=== PATIENT | male | born 1980 | race Caucasian/White ===

== ENCOUNTER 2016-11-19 15:39 | Emergency (ER) | payer OTHER ==
[2016-11-19 15:52] VITALS: BP 111/67
[2016-11-19] MEDS ORDERED: Acetaminophen/HYDROcodone 325-5 MG Tab PO ONE (16:35)
--- NOTE | 2016-11-19 17:42 | EDM.PDOC ---
ED HPI GENERAL MEDICAL PROBLEM - General Chief Complaint: Upper Extremity Injury/Pain Stated Complaint: DISLOCATED SHOULDER Time Seen by Provider: 11/19/16 15:45 - History of Present Illness INITIAL COMMENTS - FREE TEXT/NARRATIVE: 36-year-old male but since emergency room with left shoulder injury. The patient fell just prior to coming in landing on his left elbow he has developed shoulder pain and deformity. Patient landed on his elbow after tripping and going down several stairs. He does not have elbow pain at this point he does state he has some intermittent tingling into his pinky finger and ring finger this comes and goes. Patient does not have prior history of shoulder problems. left shoulder/elbow Pain Score (Numeric/FACES): 4 - Related Data Allergies Allergy/AdvReac Type Severity Reaction Status Date / Time No Known Allergies Allergy Verified 11/19/16 15:53 Home Meds: Home Meds Hydrocodone/Acetaminophen [[place] 5-325 Tablet] 1 - 2 each PO Q6H PRN #20 tablet 11/19/16 [Rx] Past Medical History - Past Health History Medical/Surgical History: Denies Medical/Surgical History - Past Surgical History Male Surgical History: Reports: Varicocele Resection Social & Family History - Family History Family Medical History: Noncontributory - Tobacco Use Smoking Status *Q: Current Every Day Smoker Years of Tobacco use: 10 Packs/Tins Daily: 0.2 - Caffeine Use Caffeine Use: Reports: None - Recreational Drug Use Recreational Drug Use: No Review of Systems - Review of Systems Review Of Systems: See Below Constitutional: Reports: No Symptoms Respiratory: Reports: No Symptoms Cardiovascular: Reports: No Symptoms GI/Abdominal: Reports: No Symptoms ED EXAM, GENERAL - Physical Exam Exam: See Below Exam Limited By: No Limitations General Appearance: Alert, No Apparent Distress Respiratory/Chest: No Respiratory Distress, Lungs Clear, Normal Breath Sounds, Chest Non-Tender Cardiovascular: Regular Rate, Rhythm, No Edema, No Murmur GI/Abdominal: Normal Bowel Sounds, Soft, Non-Tender Extremities: Other (Examination of his left hand shows no acute deformity or injury neurovascular status normal tendon function appears normal he does not have elbow discomfort with using his fingers and wrist. Outpatient of the wrist is unremarkable no tenderness palpation of the elbow is unremarkable no tenderness the patient has obvious deformity of the shoulder most consistent with an anterior shoulder dislocation.) ED TRAUMA EXTREMITY PROCEDURES - Joint Reduction Site: Shoulder (L) Sedation: Other (No sedation needed) Pre-Procedure NV Status: Normal Post-Procedure NV Status: Normal Technique: Other (The patient reduced with external rotation fairly easily. The patient was externally rotated towards forearm was pointing straight anteriorly perhaps slightly lateral and he had spontaneous reduction of his anterior dislocation) Post-Reduction Imaging: Completely Reduced Joint Reduction Complications: No Course - Vital Signs Last Recorded V/S: Last Vital Signs Temp 35.5 C 11/19/16 15:45 Pulse 94 11/19/16 15:45 Resp 18 11/19/16 15:45 BP 111/67 11/19/16 15:45 Pulse Ox 97 11/19/16 15:45 - Orders/Labs/Meds Orders: Active Orders 24 hr Category Date Time Status Humerus Lt [CR] Stat Exams 11/19/16 15:52 Taken Shoulder 1V Lt [CR] Stat Exams 11/19/16 16:17 Taken Shoulder Comp Lt [CR] Stat Exams 11/19/16 15:52 Taken Meds: Medications Discontinued Medications Generic Name Dose Route Start Last Admin Trade Name Ny PRN Reason Stop Dose Admin Hydrocodone Bitart/Acetaminophen 1 tab 11/19/16 16:35 11/19/16 16:41 [place] 325-5 Mg PO 11/19/16 16:36 1 tab ONETIME ONE Administration - Re-Assessments/Exams Free Text/Narrative Re-Assessment/Exam: 11/19/16 17:48 She had satisfactory reduction of his left elbow dislocation without the need for procedural anesthesia. X-rays were reviewed and then gentle external rotation at the point when he was externally rotated to the point his forearm pointed anteriorly he had spontaneous reduction sulcus sign resolved repeat x- rays obtained which showed good alignment in the AP and Y views. The patient was observed for a while he did request some for pain he was given a [place] and this did help. At the time of discharge patient has some questions about his elbow he did not have formal elbow x-rays obtained and this is offered however he would like to be discharged .at this point the patient has good supination and pronation of his forearm. Neurovascular status normal. The patient does have some intermittent tingling in his ulnar aspect of his hand down into his pinky and the ulnar aspect of his ring finger. The patient did fall on his elbow with this injury. Initially when the patient came in elbow x-rays were not obtained as the patient did not have discomfort in the elbow and he had reasonably decent range of motion with regards to flexion extension internal and external rotation. The patient lives in [facility] and [facility] Departure - Departure Time of Disposition: 17:42 Disposition: Home, Self-Care 01 Clinical Impression: Dislocation of left shoulder joint - Discharge Information Prescriptions: Hydrocodone/Acetaminophen [[place] 5-325 Tablet] 1 - 2 each PO Q6H PRN #20 tablet PRN Reason: Pain Referrals: PCP,None [Primary Care Provider] - Forms: ED Department Discharge Additional Instructions: Return to the emergency room with any questions problems worsening symptoms. Follow-up in your regular physician/clinic back home in [place] as soon as you get back early this next week. You have been started on hydrocodone, or [place], this is a strong pain medication use 1 or 2 every 6 hours as needed for pain. This medication can cause constipation if used on a regular basis. 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 While using the pain medication allow 12 hours after taking the hydrocodone or [place] before driving or returning to work. Wear sling at all times until you been reevaluated in the clinic or by an orthopedic surgeon. - My Orders Last 24 Hours: My Active Orders 11/19/16 15:52 Humerus Lt [CR] Stat Shoulder Comp Lt [CR] Stat 11/19/16 16:17 Shoulder 1V Lt [CR] Stat - Assessment/Plan Last 24 Hours: My Active Orders 11/19/16 15:52 Humerus Lt [CR] Stat Shoulder Comp Lt [CR] Stat 11/19/16 16:17 Shoulder 1V Lt [CR] Stat
--- NOTE | 2016-11-21 12:16 | CR ---
Left shoulder: Three views of the left shoulder were obtained. Anterior subcoracoid dislocation is seen. No fracture or other bony abnormality is identified. Impression: 1. Left shoulder dislocation. Diagnostic code #3
--- NOTE | 2016-11-21 12:16 | CR ---
Left shoulder: Two views of left shoulder were obtained. Comparison: Previous left shoulder study performed on the same day (3:51 PM). Previous study showed a left shoulder dislocation. Dislocation has been reduced with glenohumeral alignment on current exam appearing normal. No fracture or other abnormality is identified. Impression: 1. Reduction of previous dislocation. 2. Two-view left shoulder study is unremarkable. Diagnostic code #1
--- NOTE | 2016-11-21 12:16 | CR ---
Left humerus: Two views of the left humerus were obtained. Comparison: No prior study. Left shoulder dislocation is identified. No fracture or other abnormality is seen. Impression: 1. Left shoulder dislocation. 2. Other portions of the left humerus exam are unremarkable. Diagnostic code #3
== END 2016-11-19 17:55 | disposition home or self-care (01) ==
LOC: JD.ED 15:39
DX: S43.015A Anterior dislocation of left humerus, initial encounter (principal); F17.210 Nicotine dependence, cigarettes, uncomplicated; W01.0XXA Fall on same level from slipping, tripping and stumbling without subsequent striking against object, initial encounter
CPT/HCPCS: 23650; 73020; 73030; 73060; 99284; A9270; 99283